=== PATIENT | female | born 1955 | race Caucasian/White ===

== ENCOUNTER 2018-02-20 12:59 | Inpatient (IN) ==
--- NOTE | 2018-02-14 15:26 | Anesthesia Evaluation PreOp ---
Addendum entered and electronically signed by Claudia Huff MD 02/20/18 13:47: PSHx: L-shoulder lumpectomy R-RCR L-RCR Cardiac MOISES stent placement 07/27/2017 Additional PMHx: MARCELLE HTN Chol O2 Sat Height 1.65 m Height 1.65 m Weight 77.111 kg Weight 77.111 kg O2 Sat by Pulse Oximetry 97 Vital Signs Temp Pulse Resp BP Pulse Ox 98.2 F 68 18 139/83 97 02/20/18 13:22 02/20/18 13:22 02/20/18 13:22 02/20/18 13:22 02/20/18 13:22 Laboratory Tests 02/14/18 02/14/18 02/14/18 14:24 14:24 14:24 WBC Hgb Hct Plt Count PT 12.3 H INR 1.1 Sodium 138 Potassium 4.2 Chloride 103 Carbon Dioxide 25 BUN 26 H Creatinine 0.84 Est GFR (Non-Af Amer) > 60 Est Mean Plasma Glucose 128 Hemoglobin A1c 6.1 H 02/14/18 14:25 WBC 17.6 H Hgb 13.5 Hct 41.2 Plt Count 369 PT INR Sodium Potassium Chloride Carbon Dioxide BUN Creatinine Est GFR (Non-Af Amer) Est Mean Plasma Glucose Hemoglobin A1c Cardiac Cath 07/27/2017 [[facility] [place], [place], [place]] 1v CAD Successful PCI, Synergy MOISES to RCA LVEF 40-45% Inferobasal and inferior akinesia NO significant Aortic valve gradient ECHO 01/24/2018 LVEF 35% Akinetic Inferolateral & inferior gilliam Grade 1 diastolic dysfunction Mild Mitral regurgitation Original Note: Date of Encounter: 02/14/18 Time of Encounter: 15:23 - Past History Planned Operation: Right total hip arthroplasty (robotic) Cardiac History: MN (STEMI 07-28-17 (lateral STEMI); 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), CHF (chronic systolic CHF with EF 35%), HTN, Cardiac Stent (distal RCA MOISES stent 07-28-17; effient d/c'ed 02-11-18; cardiology clearance note from), Other (chronic adhesive idiopathic pericarditis) Pulmonary History: Denies Any Significant HX ASSOCIATE MEDICAL DIRECTOR History: Denies Any Significant HX Other Medical History: Diabetes Type II (oral medications only, well controlled) Anesthesia History: No Prior Anesthetic Complications Alcohol Use: none Medications and Allergies Albuterol Inhaler 08/28/17 [History] Amoxicillin/Clavulanate [Augmentin] 875 mg PO BID #20 tablet 08/28/17 [Rx] Aspirin 08/28/17 [History] Atorvastatin 08/28/17 [History] Citalopram 08/28/17 [History] Fluticasone Propionate Nasal [Flonase] 2 spray NS DAILY 7 Days bottle 08/28/17 [Rx] Losartan Potassium 08/28/17 [History] Magnesium 08/28/17 [History] Metformin HCl 08/28/17 [History] Metoprolol 08/28/17 [History] Nitroglycerin 08/28/17 [History] Ondansetron HCl 08/28/17 [History] Prasugrel 08/28/17 [History] Ropinirole HCl 08/28/17 [History] Torsemide 08/28/17 [History] Zolpidem Tartrate 08/28/17 [History] Allergy/AdvReac Type Severity Reaction Status Date / Time Hydromorphone [From Dilaudid] Allergy Gastrointestinal Verified 08/28/17 18:44 Upset promethazine [From Phenergan] Allergy Gastrointestinal Verified 08/28/17 18:44 Upset - Meds/Allergy Pre-op Review Medications Reviewed: Yes Allergies Reviewed: Yes Beta Blockers on Current Med List: Yes (metoprolol) Anesthesia Exam - HEENT Pupil (Motor): Pupils equal, EOMI Mallampati: II Teeth: Normal Oral Opening: Greater than 3 - ASSOCIATE MEDICAL DIRECTOR LOC: Oriented - Cardiac Rhythm: Regular Murmur: None - Pulmonary Breath Sounds: bilateral Clear Respiratory Effort: Symmetrical Anesthesia Assess/Plan ASA Score: 3 Modified Clarissa Scale for Level of Consciousness: Cooperative, oriented, and tranquil Anesthetic Plan: General (Patient prefers general anesthesia over spinal anesthesia; she has a reduced EF of 35% without symptoms of CHF exacerbation; she was recently seen by her transfill technician who cleared her for the surgery scheduled for 02-20-18 and instructed her to d/c her Effient 02-11-18 (of note, she no longer takes a baby aspirin and this is her only blood thinner)) Monitoring Plan: Standard Monitors Recovery Plan: PACU Anes Supervising Prov Stmt: Patient discussed with PAT. We currently have the cardiac clearance note. However, I requested the cardiac records (cardiac cath, echocardiograms, EKG, etc) were requested to be made available the day of surgery.
--- NOTE | 2018-02-19 22:31 | Discharge Summary ---
<Xiomara Benavides - Last Filed: 02/20/18 16:42> Orders not resulted at time of discharge: Pending orders 02/20/18 00:01 XR hip complete RT [XR] Routine H/H [Hemoglobin and Hematocrit] [HEME] Routine - Discharge Diagnosis (1) Status post total hip replacement, right Priority: Primary Status: Acute Comments: Opsite placed. Keep dressing intact until first follow up appointment. If > 50% saturated, notify office, remove dressing and place appropriate dressing back in place. Leave Zipline intact. Opsite dressing is water resistant, not water- proof. OK to shower, but do not get dressing wet. Total Hip replacement Precautions Apply cold therapy 3-6x/day for 20 minutes at a time. Encourage ambulation throughout the day and incentive spirometer 10x/hour. Elevate affected extremity as tolerated. Brace: Wear hip abduction pillow when laying/sleeping (2) Arthritis of right hip Priority: Primary Status: Acute (3) HTN (hypertension) Priority: Secondary Status: Chronic Qualifiers: Hypertension type: essential hypertension Qualified Code(s): I10 - Essential (primary) hypertension (4) DM2 (diabetes mellitus, type 2) Priority: Secondary Status: Acute Qualifiers: Diabetes mellitus oysterman insulin use: unspecified oysterman insulin use status Diabetes mellitus complication status: with unspecified complications Qualified Code(s): E11.8 - Type 2 diabetes mellitus with unspecified complications (5) CAD (coronary artery disease) Priority: Secondary Status: Chronic Qualifiers: Coronary Disease-Associated Artery/Lesion type: unspecified vessel or lesion type [place] vs. transplanted heart: [place] heart Associated angina: without angina Qualified Code(s): I25.10 - Atherosclerotic heart disease of [place] coronary artery without angina pectoris (6) CHF (congestive heart failure) Priority: Secondary Status: Chronic Qualifiers: Heart failure type: combined systolic and diastolic Heart failure chronicity: chronic Qualified Code(s): I50.42 - Chronic combined systolic (congestive) and diastolic (congestive) heart failure (7) MARCELLE (obstructive sleep apnea) Priority: Secondary Status: Chronic - Hospital Course Hospital course: Ms. Rogers is a 62 year old female - Time Spent with Patient Total time spent providing and/or coordinating discharge services: - Discharge Medications Home Medications: Aspirin Enteric Coated [Aspirin EC] 325 mg PO BID #20 tablet 02/19/18 [Rx] OxyCODONE Immed Rel [Roxicodone 5 MG] 5 mg PO Q6HR PRN 7 Days #28 tablet 02/19/18 [Rx] Acetaminophen [Tylenol] 325 mg PO Q4H PRN 02/20/18 [History] Albuterol Neb [Proventil Neb] 2.5 mg IH Q8H PRN 02/20/18 [History] Albuterol Sulfate [Ventolin Hfa] 2 puff IH Q6H PRN 02/20/18 [History] Atorvastatin Calcium [Lipitor] 80 mg PO HS 02/20/18 [History] Ciprofloxacin HCl [Cipro] 250 mg PO BID 02/20/18 [History] Colchicine [Mitigare] 0.6 mg PO DAILY 02/20/18 [History] Guaifenesin [Mucinex] 600 mg PO Q12H 02/20/18 [History] Lisinopril 2.5 mg PO BID 02/20/18 [History] Magnesium Oxide [Mgo] 400 mg PO TID 02/20/18 [History] Meclizine [Antivert] 12.5 mg PO TID PRN 02/20/18 [History] Metoprolol XL (24 HR) Succ [Toprol Xl] 50 mg PO DAILY 02/20/18 [History] Multivitamin [One Daily Multivitamin] 1 tab PO DAILY 02/20/18 [History] Nitroglycerin [Nitrostat] 0.4 mg SL Q5M PRN 02/20/18 [History] Ondansetron HCl [Zofran] 4 mg PO Q8HR PRN 02/20/18 [History] Pantoprazole Sodium [Protonix] 40 mg PO DAILY 02/20/18 [History] Prasugrel [Effient] 10 mg PO DAILY 02/20/18 [History] Sertraline [Zoloft] 25 mg PO DAILY 02/20/18 [History] Tramadol HCl [Ultram] 50 mg PO QID PRN 02/20/18 [History] metFORMIN [Glucophage] 500 mg PO BIDWM 02/20/18 [History] rOPINIRole [Requip] 1 mg PO BID 02/20/18 [History] Ferrous Sulfate 325 mg PO BIDWM tablet 02/22/18 [Rx] Allergies/Adverse Reactions: Allergy/AdvReac Type Severity Reaction Status Date / Time Hydromorphone [From Dilaudid] Allergy Gastrointestinal Verified 08/28/17 18:44 Upset promethazine [From Phenergan] Allergy Gastrointestinal Verified 08/28/17 18:44 Upset Primary care physician: Saji Lockwood MD - Patient Status Disposition: Transfer Inpatient Rehab Fac Condition: Good - Discharge Instructions Instructions: Total Hip Replacement (DC) Follow Up With: Saji Lockwood MD [Primary Care Provider] - Additional Instructions: Discharge Instructions: Total Hip Replacement Please call [facility] ([phone]), your Primary Care Physician, or report to the Emergency Room if you have any of the following symptoms: Nausea, vomiting, fever greater that 101.5, swelling, chest pain, shortness of breath, increased pain/redness/drainage/odor for your incision site, numbness/tingling, or any other concerning symptoms. ACTIVITY:Weight-bearing as tolerated for 8 weeks with hip dislocation precautions that physical therapy taught you. You may progress as tolerated under the guidance of your physical therapist. You do not need to sleep with a pillow between your legs. You can also seep on the operative side or on your stomach. Incentive Spirometer 10 times an hour. MEDICATIONS: Upon discharge resume your home medications. Take all the medications as prescribed. Take a stool softener if taking narcotic pain medications. Stool softeners are only effective if you drink enough fluids. Drink 6-8 glass of water or fluids a day, unless this is not allowed for another health problem. Despite using stool softeners, if you haven't had a bowel movement in 3 days, please switch to a gentle laxative. Gentle laxatives are sold over the counter. You should have a bowel movement within 24 hours, if not call the office. You will be discharged from the hospital with a prescription for pain medication. You are encouraged to decrease the use of narcotic pain medication as tolerated. Should you require a refill, please call the office. [facility] prescribes narcotic pain medication for only 4-6 weeks after surgery. If you require pain medication beyond this time period, you may be referred to your Primary Care Physician or to the Pain Clinic for further evaluation. Plan ahead for refills on pain medication as many narcotics either need to be picked up at the office or mailed. It is best to call 48-72 hours in advance of needing a prescription refill so you don't run out of medication. To help control the post-operative pain, you may take NSAIDs (Aleve,Advil, Motrin, ibuprofen, naprosyn) or Tylenol as prescribed on the bottle in addition to the pain medication. ANTICOAGULATION (blood thinners): Continue your Aspirin, Lovenox or Coumadin as prescribed to help prevent a blood clot in the leg or in the lungs. As long as your incision remains dry and you tolerate the NSAIDs (Aleve, Advil, Motrin, Ibuprofen, Naprosyn), it is OK to use the NSAIDS while you are taking your anticoagulation medication. Should your incision start to drain, stop the NSAID and contact our office. Common symptoms of blood clot in the legs include: localized pain, swelling, calf tenderness, redness or discoloration of the skin. Blood clot in the lung symptoms include: shortness of breath, rapid pulse, sweating, and chest pain that worsens with deep breathing, coughing up blood, lightheadedness, feelings of anxiety. If you experience any of these symptoms notify your physician immediately, go to the emergency room, or if having trouble breathing, call 911. WOUND CARE: Leave the dressing on for 7 to 10days. You may change the dressing if it is saturated greater than 50%. Do not get the dressing wet at anytime. Wash your hands with antibacterial soap, rinse and dry prior to any wound care. If you have francesca the visiting nurse or rehab facility can remove the stapes 10-14 days after surgery and place steri-strips across the wound. Leave the steri-strips in place until they fall off on their own. You may let water from the shower run on top of the steri-strips. If you do not have a visiting nurse or rehab facility, you will need to return to the office at 10-14 days for the francesca to be removed. If you have itching or redness around the dressing call the office. FOLLOW-UP: Please follow up with your surgeon in the orthopedic clinic in 6 weeks from the day of surgery. If you have francesca that need to be removed, you will need to come back to the office in 10-14 days from the day of surgery. <Allyson Martines - Last Filed: 02/22/18 12:29> - NOTES TO OUTPATIENT PROVIDER Notes to Outpatient Provider: Will need repeat H/H on 02/23/18 Orders not resulted at time of discharge: Pending orders 02/20/18 14:04 US anesthesia pain block [US] Routine Date of Encounter: 02/22/18 Time of Encounter: 11:50 - Discharge Diagnosis (1) Status post total hip replacement, right Priority: Primary Status: Acute (2) Arthritis of right hip Priority: Primary Status: Acute (3) Acute blood loss anemia Priority: Secondary Status: Acute (4) DM2 (diabetes mellitus, type 2) Priority: Secondary Status: Acute Qualifiers: Diabetes mellitus oysterman insulin use: unspecified skilled nursing insulin use status Diabetes mellitus complication status: with unspecified complications Qualified Code(s): E11.8 - Type 2 diabetes mellitus with unspecified complications (5) CAD (coronary artery disease) Priority: Secondary Status: Chronic Qualifiers: Coronary Disease-Associated Artery/Lesion type: unspecified vessel or lesion type [place] vs. transplanted heart: [place] heart Associated angina: without angina Qualified Code(s): I25.10 - Atherosclerotic heart disease of [place] coronary artery without angina pectoris (6) CHF (congestive heart failure) Priority: Secondary Status: Chronic Qualifiers: Heart failure type: combined systolic and diastolic Heart failure chronicity: chronic Qualified Code(s): I50.42 - Chronic combined systolic (congestive) and diastolic (congestive) heart failure (7) HTN (hypertension) Priority: Secondary Status: Chronic Qualifiers: Hypertension type: essential hypertension Qualified Code(s): I10 - Essential (primary) hypertension (8) MARCELLE (obstructive sleep apnea) Priority: Secondary Status: Chronic - Hospital Course Hospital course: Ms. Rogers is a 62 year old female s/p right THR robotic 02/20/18 with history of HTN, DMT2, CAD, CHF, MARCELLE. She had uneventful hospital course. Hgb did drop from 9.9 yesterday to 8.6 today but she is asymptomatic at this time and will have ECF redraw H/H tomorrow to monitor. She participated in therapy and is stable for discharge. Patient seen at bedside, without complaints other than some nausea after each therapy session, improved with zofran. A&O x 3 Afebrile, vital signs stable. Dressings to be changed before discharge. No calf tenderness to palpation. Labs reviewed. H/H - 9.9/30.3 on 02/21 8.6/26.9 on 02/22 asymptomatic, will have ECF repeat H/H on 02/23/18 Pain control: adequate Participating in PT. All questions and concerns addressed. Educated on use of incentive spirometer. Encouraged ambulation and proper hydration. Patient educated on post-operative restrictions and post-operative care. Assessment and plan: Continue with postoperative care Discharge plan: VASILIY - Jose, pending authorization, DC today - Time Spent with Patient Total time spent providing and/or coordinating discharge services: Date of admission: 02/20/18 19:29 Primary care physician: Saji Lockwood MD Consults: 02/20/18 19:35 Consult to Nurse Navigator [CONS] Routine Comment: ortho navigator Consult to Occupational Therapy [CONS] Routine Comment: Evaluate, develop and implement POC Reason for Consult: total hip replacement Does patient have active BEDREST order?: No Is patient medically & hemodynamically stable?: Yes Consult to Physical Therapy [CONS] Routine Comment: Evaluate, develop and implement POC Reason for Consult: total hip replacement Does patient have active BEDREST order?: No Is patient medically & hemodynamically stable?: Yes Consult to Wallpaper Inspector And Shipper [CONS] Routine Reason for SW Consult: post op joint replacement RT Post Op Consult [CONS] Routine Discharging clinician: Jorge Pepe Anticipated date of discharge: 02/22/18 Labs on day of discharge: Labs from last 24 hours 02/22/18 02/22/18 02/21/18 04:34 04:34 16:06 Hgb 8.6 L Hct 26.9 L Sodium 136 Potassium 4.1 Chloride 101 Carbon Dioxide 29 BUN 19 Creatinine 0.65 Est GFR ( Amer) > 60 Est GFR (Non-Af Amer) > 60 BUN/Creatinine Ratio 29 H Glucose 128 H POC Glucose 181 H Calculated Osmolality 286 Calcium 9.0 02/21/18 10:37 Hgb Hct Sodium Potassium Chloride Carbon Dioxide BUN Creatinine Est GFR ( Amer) Est GFR (Non-Af Amer) BUN/Creatinine Ratio Glucose POC Glucose 159 H Calculated Osmolality Calcium - Impressions ITS Impressions Hip X-Ray 02/20/18 00:01 IMPRESSION: No acute abnormality following right hip arthroplasty D/ / Nick Acosta MD / Nick Acosta MD Interpreting Provider: Nick Acosta MD - Patient Status Overall status at discharge: patient is back to baseline - Diet and Activity Activity: as per physical therapy Diet: advance to your usual diet
[2018-02-20] MEDS ORDERED: CeFAZolin Syr 2,000MG/20 ML 2,000 MG/20 ML SYRINGE IVPB ONE (13:28)
[2018-02-20] MEDS ORDERED: Lidocaine -MPF 4% 5 ML AMPUL ONE (13:36)
[2018-02-20] MEDS ORDERED: Albuterol 2.5 MG/3 ML NEBULIZER IH ONE (13:47)
[2018-02-20] MEDS: Ringers Solution, Lactated 1,000 ML IVC SCH ×2 (13:57→16:52)
--- NOTE | 2018-02-20 14:02 | History & Physical Report ---
Date of Encounter: 02/20/18 Time of Encounter: 14:01 24 Hour HP Update - Instructions Instructions: If the History and Physical is less than 30 days old and was completed prior to A.M. admission and or procedure and has NOT been updated on calendar day of procedure please complete this update prior to performing procedure. - Update Patient reports changes in Medical Condition: No Changes in examination, assessment, or condition: No Changes in Medication: No Preop tests/diagnostics Reviewed: Yes Surgery Remains Indicated: Yes Consent for Planned Operative Procedure(s) Verified: Yes - Pre-Operative Checklist Preoperative Checklist Indicated: No Prophylactic Antibiotic Ordered: Yes Is VTE Prophylaxis Indicated?: Yes
[2018-02-20] MEDS ORDERED: Famotidine 20 MG/2 ML VIAL IVP ONE (14:04)
[2018-02-20] MEDS ORDERED: Acetaminophen IV 1,000 MG/100 ML INFUS..BTL IVPB ONE (14:05)
[2018-02-20] MEDS ORDERED: Pregabalin 75 MG CAPSULE PO ONE (14:05)
[2018-02-20] MEDS ORDERED: Ethanol\\Acetic Acid\\Na Ace\\Ben 1,000 ML IRRIG.SOLN IR ONE (14:33)
[2018-02-20] MEDS ORDERED: *HR* Propofol 200 MG/20 ML VIAL IVP ONE (14:34)
[2018-02-20] MEDS ORDERED: *HR* FentaNYL (PF) 100 MCG/2 ML VIAL ONE (14:34)
[2018-02-20] MEDS ORDERED: *HR* Midazolam HCl 2 MG/2 ML VIAL ONE (14:34)
[2018-02-20] MEDS ORDERED: Lidocaine -MPF 2% 2 ML VIAL ONE (14:35)
[2018-02-20] MEDS ORDERED: Dexamethasone 4 MG/ML VIAL ONE (14:35)
[2018-02-20] MEDS ORDERED: Ondansetron 4 MG/2 ML VIAL ONE (14:35)
[2018-02-20] MEDS ORDERED: *HR* Etomidate 40 MG/20 ML VIAL IVP ONE (15:00)
--- NOTE | 2018-02-20 15:11 | Anesthesia Procedures ---
Date of Encounter: 02/20/18 Time of Encounter: 14:44 Procedures: Anesthesia - Nerve Block Procedure Date: 02/20/18 Time: 14:49 Surgical Procedure: right total hip replacement Checklist: Correct Patient Identifier, Correct procedure, History checked Correct side: Right Monitor Applied: BP, Pulse Oximetry Supplemental Oxygen via Nasal Cannula (L/min): 2 Sedation: Versed (mg): 2 Sedation: Fentanyl (mcg): 50 Indication: Post Op Analgesia Block Type: Other (facia iliacia) Catheter placed: No Sterile Technique: Yes Ultrasound used: Yes Anatomy identified: Yes Visual spread of Local: Yes Neuro Stimulation: No Blood on Needle Aspiration: No Smooth Injection of Local: Yes Pain with Injection of Local: No Prep: Chlorhexadine Needle: 22 x 50 mm Stimuplex Local: Other (55ml, 5ml of 1% lido, and 50ml 0.25% bup with 20mg tetracaine ) Volume (cc): 55 Number of Attempts: 1 Complications: None/effective block Vitals: vss though out procedure, block per request of surgeon.
[2018-02-20] MEDS ORDERED: *HR* Morphine 2 MG/ML SYRINGE IVP PRN (15:15)
[2018-02-20] MEDS ORDERED: Ondansetron 4 MG/2 ML VIAL IVP ONE (15:15)
[2018-02-20] MEDS ORDERED: *HR* Labetalol 20 MG/4 ML SYRINGE IVP PRN (15:15)
--- NOTE | 2018-02-20 15:56 | Orthopedic Operative Note ---
Date of procedure: 02/20/18 Pre-op diagnosis: Right hip arthritis Post-op diagnosis: same Procedure: Procedure: Right Total Hip Replacment robotic-assisted Estimated blood loss: 200 cc Hardware: Metal and polyethylene replacement. Jennie DM Cup: 52 cup Femoral size 9 stem Head: +4 head with Wen Procedural Notes: Grade 4 arthritic changes femoral head acetabular socket, procedure performed with robotic assistance. Operative leg 13 mm shorter than nonoperative leg is measured by preoperative CT scan. Operative procedure: The patient was brought to the operating room and placed on the operating room table. After general anesthesia was administered the patient was placed in the lateral decubitus position with the operative leg up. All pressure points were padded appropriately and the head was stabilized in the neutral position. The operative extremity was prepped and draped in the sterile surgical fashion patient received IV antibiotic prior to skin incision. 3 Steinmann pins were placed in the iliac crest 3 cm proximal to the anterior superior iliac spine this was for the robotic-assisted sensor. This was done through a small 2 cm incision. A standard posterior approach is made to the operative hip, the inc ision was made through the skin and subcutaneous tissue hemostasis was obtained with Bovie cautery. Using careful sharp dissection the fascia was identified and incised exposing the external rotators. The greater trochanter was marked, and length was measured at this time utilizing robotic assistance. The external rotators were released off the greater trochanter and tagged with #2 FiberWire suture. The capsule was T'd open and the hip was brought into internal rotation. Patient noted to have grade 4 arthritic changes femoral head. The femoral neck cut was made at the appropriate level roughly 15 mm proximal to the lesser trochanter aced on preoperative templating. An anterior capsulotomy was performed for the anterior retractor. Soft tissues removed from the acetabulum. Patient noted to have grade 4 arthritic changes acetabulum. The acetabulum reference point was confirmed. The acetabulum was then mapped with robotic assistance. Based on the preoperative plan the acetabulum was reamed in one step with a 51 reamer. The 52 acetabulum was impacted with robotic assistance and 39 degrees of abduction and 15 degrees of anteversion. The hip was brought back in to internal rotation and prepared with the paper box maker followed by the canal finder followed by the reaming process to a size 9/10 broaching process in 20 degrees anteversion. It was broached up to the appropriate size 9 Trial reduction revealed leg lengths close to normal. The femoral implant was impacted in place in 20 degrees of anteversion. Trial reduction found the hip to be stable with 4 head and Wen. The trials were removed and the real implants were impacted in place. The hip was reduced, patient had robotic confirmed leg length of 5 mm longer than the contralateral side. The hip had excellent stability with forward flexion to 90 degrees adduction of 30 degrees and internal rotation of 60 degrees. The hip had no shuck. The hip sat with an antibacterial solution. It was irrigated out with 2 L of pulse irrigation. The Steinmann pins were removed. The hip was closed by the PA. The deep tissue was irrigated and closed deep with #1 PDS suture superficially with 0 PDS suture and skin was closed with Dermabond and zip tie. The patient was placed in a sterile dressing and abduction pillow. The patient was extubated and transferred to the recovery room in stable condition. Anesthesia: GETA Surgeon: Jorge Pepe Was there an diploma medical assistant present: No Estimated blood loss (cc): 200 Condition: stable Disposition: PACU
[2018-02-20] MEDS ORDERED: *HR* Morphine 10 MG/ML VIAL ONE (16:17)
--- NOTE | 2018-02-20 16:48 | Physician Discharge Referral ---
<Xiomara Benavides L - Last Filed: 02/20/18 16:47> [facility] Referral Info Transfer To: [facility] Provider in Charge: Provider in Charge after Transfer: PCP Institutional Level of Care: Skilled - Diagnosis (1) Status post total hip replacement, right Priority: Primary Status: Acute (2) Arthritis of right hip Priority: Primary Status: Acute (3) HTN (hypertension) Status: Chronic (4) DM2 (diabetes mellitus, type 2) Status: Acute (5) CAD (coronary artery disease) Status: Chronic (6) CHF (congestive heart failure) Status: Chronic (7) MARCELLE (obstructive sleep apnea) Status: Chronic - Transfer Medications Home Medications: Aspirin Enteric Coated [Aspirin EC] 325 mg PO BID #20 tablet.dr 02/19/18 [Rx] OxyCODONE Immed Rel [Roxicodone 5 MG] 5 mg PO Q6HR PRN 7 Days #28 tablet 02/19/18 [Rx] Acetaminophen [Tylenol] 325 mg PO Q4H PRN 02/20/18 [History] Albuterol Neb [Proventil Neb] 2.5 mg IH Q8H PRN 02/20/18 [History] Albuterol Sulfate [Ventolin Hfa] 2 puff IH Q6H PRN 02/20/18 [History] Atorvastatin Calcium [Lipitor] 80 mg PO HS 02/20/18 [History] Ciprofloxacin HCl [Cipro] 250 mg PO BID 02/20/18 [History] Colchicine [Mitigare] 0.6 mg PO DAILY 02/20/18 [History] Guaifenesin [Mucinex] 600 mg PO Q12H 02/20/18 [History] Lisinopril 2.5 mg PO BID 02/20/18 [History] Magnesium Oxide [Mgo] 400 mg PO TID 02/20/18 [History] Meclizine [Antivert] 12.5 mg PO TID PRN 02/20/18 [History] Metoprolol XL (24 HR) Succ [Toprol Xl] 50 mg PO DAILY 02/20/18 [History] Multivitamin [One Daily Multivitamin] 1 tab PO DAILY 02/20/18 [History] Nitroglycerin [Nitrostat] 0.4 mg SL Q5M PRN 02/20/18 [History] Ondansetron HCl [Zofran] 4 mg PO Q8HR PRN 02/20/18 [History] Pantoprazole Sodium [Protonix] 40 mg PO DAILY 02/20/18 [History] Prasugrel [Effient] 10 mg PO DAILY 02/20/18 [History] Sertraline [Zoloft] 25 mg PO DAILY 02/20/18 [History] Tramadol HCl [Ultram] 50 mg PO QID PRN 02/20/18 [History] metFORMIN [Glucophage] 500 mg PO BIDWM 02/20/18 [History] rOPINIRole [Requip] 1 mg PO BID 02/20/18 [History] Ferrous Sulfate 325 mg PO BIDWM tablet 02/22/18 [Rx] Allergies/Adverse Reactions: Allergy/AdvReac Type Severity Reaction Status Date / Time Hydromorphone [From Dilaudid] Allergy Gastrointestinal Verified 08/28/17 18:44 Upset promethazine [From Phenergan] Allergy Gastrointestinal Verified 08/28/17 18:44 Upset - Respiratory Orders None Smoking Cessation: Smoking cessation has been advised. For more information, call the [place] Tobacco Quit Line at 2-494-DXHX-NOW. - Advance Directives Code Status: Full Code - Mobility Orders Chair, Ambulate - Rehabiliation Orders Rehab Potential: Good Rehab Orders: ROM Exercises, Evaluation for Physical Therapy, Evaluation for Occupational Therapy - Treatments List/Other: Total Hip replacement Precautions Apply cold therapy 3-6x/day for 20 minutes at a time. Encourage ambulation throughout the day and incentive spirometer 10x/hour. Elevate affected extremity as tolerated. Brace: Wear hip abduction pillow when laying/sleeping Opsite placed. Keep dressing intact until first follow up appointment. If > 50% saturated, notify office, remove dressing and place appropriate dressing back in place. Leave Zipline intact. Opsite dressing is water resistant, not water- proof. OK to shower, but do not get dressing wet. CERTIFICATION: I certify that the transfer of the above named patient to an Extended Care Facility is necessary for the continuing treatment of the diagnosis listed. The above information is true and accurate reflection of patient's current condition. Confidential - Redisclosure prohibited without a patient's written consent. <Allyson Martines - Last Filed: 02/22/18 12:21> - Diagnosis (1) Status post total hip replacement, right Priority: Primary Status: Acute (2) Arthritis of right hip Priority: Primary Status: Acute (3) Acute blood loss anemia Priority: Secondary Status: Acute (4) DM2 (diabetes mellitus, type 2) Priority: Secondary Status: Acute (5) CAD (coronary artery disease) Priority: Secondary Status: Chronic (6) CHF (congestive heart failure) Priority: Secondary Status: Chronic (7) HTN (hypertension) Priority: Secondary Status: Chronic (8) MARCELLE (obstructive sleep apnea) Priority: Secondary Status: Chronic Expected Duration of Placement: ferry terminal agent Prognosis: Good Aware of Diagnosis: Patient Aware of Prognosis: Patient - Respiratory Orders Smoking Cessation: Smoking cessation has been advised. For more information, call the [employer] Quit Line at 2-414-DOZD-NOW. - Lab Orders Lab Orders: CBC (Need to repeat H/H on 02/23/18) - Ancillary Orders May use pressure relief devices daily prn, May go on MICHAEL w/family/respon constitution party w/meds at nurse discretion PRN, May consult with Dentist, Clerical Manager, Coat Padder PRN - Advance Directives Code Status: Full Code - Mobility Orders Chair, Ambulate - Rehabiliation Orders Rehab Potential: Good Rehab Orders: ROM Exercises, Evaluation for Physical Therapy, Evaluation for Occupational Therapy - Treatments Skin tear care topically daily PRN per policy - Diet Orders Regular CERTIFICATION: I certify that the transfer of the above named patient to an Extended Care Facility is necessary for the continuing treatment of the diagnosis listed. The above information is true and accurate reflection of patient's current condition. Confidential - Redisclosure prohibited without a patient's written consent.
--- NOTE | 2018-02-20 17:14 | Anesthesia Evaluation Post Op ---
Date of Encounter: 02/20/18 Time of Encounter: 17:12 - Vital Signs Vital Signs: Vital Signs/O2 Sat/Glucose, Most Current Temp Pulse Resp BP Pulse Ox 02/20/18 16:55 92 15 135/79 95 02/20/18 16:45 87 14 138/65 96 02/20/18 16:35 98.0 F 92 18 154/81 96 02/20/18 14:56 72 16 131/68 98 02/20/18 14:28 66 18 135/69 99 02/20/18 14:01 18 97 02/20/18 13:22 98.2 F 68 18 139/83 97 - Lungs Lungs: Clear Ascult./Percussion - Airway Airway: Non-obstructed - Cardiovascular Regular Rate, Baseline Rhythm - Mental Status Mental Status: Alert & Oriented, Answers Appropriately - Pain Pain Scale: 0 - Nausea Vomiting Nausea Vomiting: Not Present - Hydration Hydration: Ice chips, Has not voided - Discharge PostOp Status: Transfer Patient to floor (Tolerated anesthesia well.)
[2018-02-20] MEDS ORDERED: *HR* Enoxaparin 30 MG/0.3 ML SYRINGE SQ SCH (18:00)
[2018-02-20] MEDS ORDERED: Dextrose Gel 15 GM/37.5 ML TUBE PO PRN ×2 (19:35)
[2018-02-20] MEDS ORDERED: Fluticasone Propionate Nasal 50 MCG/SPRAY BOTTLE NS PRN (19:35)
[2018-02-20] MEDS ORDERED: Benzonatate 100 MG CAPSULE PO PRN (19:35)
[2018-02-20] MEDS ORDERED: Nitroglycerin 0.4 MG TAB.SUBL SL PRN (19:35)
[2018-02-20] MEDS ORDERED: Temazepam 15 MG CAPSULE PO PRN (19:35)
[2018-02-20] MEDS ORDERED: Sennosides 8.6 MG TABLET PO PRN (19:35)
[2018-02-20] MEDS ORDERED: Colchicine 0.6 MG TABLET PO PRN (19:35)
[2018-02-20] MEDS ORDERED: MOM Conc 10 ML UD.LIQ PO PRN (19:35)
[2018-02-20] MEDS ORDERED: Naloxone 0.4 MG/ML INJ IVP PRN (19:35)
[2018-02-20] MEDS ORDERED: traMADol 50 MG TABLET PO PRN (19:35)
[2018-02-20] MEDS ORDERED: (Menthol [Biofreeze] 1 APPL) TP PRN (19:35)
[2018-02-20] MEDS ORDERED: Ringers Solution, Lactated 1,000 ML IVC SCH (19:35)
[2018-02-20] MEDS ORDERED: *HR* Dextrose 50 % in Water (Syg) 50 ML SYRINGE IVP PRN (19:35)
[2018-02-20] MEDS ORDERED: *HR* OxyCODONE Immed Rel 5 MG TABLET PO PRN (19:35)
[2018-02-20] MEDS ORDERED: D5% in Water 1,000 ML IVC PRN (19:35)
[2018-02-20] MEDS: Insulin LISPRO 300 UNITS/3 ML VIAL SQ SCH ×2 (20:47→20:56)
[2018-02-20] MEDS: Magnesium Oxide 400 MG TABLET PO SCH ×2 (20:51→21:04)
[2018-02-20] MEDS: *HR* Metformin 500 MG TABLET PO SCH (20:51)
[2018-02-20] MEDS: rOPINIRole 1 MG TABLET PO SCH (20:51)
[2018-02-20] MEDS: Ascorbic Acid 500 MG TABLET PO SCH (20:55)
[2018-02-20] MEDS: Ondansetron 4 MG/2 ML VIAL IVP PRN (21:04)
[2018-02-20] MEDS ORDERED: Albuterol 2.5 MG/3 ML NEBULIZER IH PRN (23:00)
[2018-02-21 00:57] LABS: Hematocrit 31.2 % (35.3-44.9)
[2018-02-21 00:58] LABS: Hemoglobin 10.4 g/dL (11.5-15.4)
[2018-02-21] MEDS: Ondansetron 4 MG/2 ML VIAL IVP PRN (03:49)
--- NOTE | 2018-02-21 06:17 | Orthopedics Progress Note ---
Date of Encounter: 02/21/18 Time of Encounter: 06:17 Subjective Interval history: Patient was seen this morning doing well without complaints. Afebrile vital signs stable. Operative extremity: Neurovascularly intact Dressing clean dry and intact Calves nontender Assessment and plan: Continue with postoperative care Objective Vital signs: Vital Signs Temp Pulse Resp BP Pulse Ox 02/21/18 03:41 97.7 F 95 18 117/74 98 02/20/18 22:48 97.5 F L 85 17 123/81 100 02/20/18 20:04 97.9 F 88 15 96/61 100 02/20/18 18:47 76 16 106/71 02/20/18 17:25 98.7 F 72 13 114/63 97 02/20/18 17:15 73 14 122/64 96 02/20/18 17:05 98.7 F 77 15 138/65 94 02/20/18 16:55 92 15 135/79 95 02/20/18 16:45 87 14 138/65 96 02/20/18 16:35 98.0 F 92 18 154/81 96 02/20/18 14:56 72 16 131/68 98 02/20/18 14:28 66 18 135/69 99 02/20/18 14:01 18 97 02/20/18 13:22 98.2 F 68 18 139/83 97 Intake and Output 02/20/18 02/20/18 02/21/18 15:59 23:59 07:59 Intake Total 1100 / 1100 200 / 200 Output Total 200 / 200 Balance 900 / 900 200 / 200 Intake: IV Fluids 1100 / 1100 Lactated Ringers 1,000 ML @ 25 1000 / 1000 mls/hr IVC .Q24H YEN Rx#: [id number] Ofirmev 1,000 mg/100 ml 1,000 100 / 100 mg In 100 ml @ 400 mls/hr IVPB ONCE ONE Rx#:[id number] Oral 200 / 200 Output: Estimated Blood Loss 200 / 200 Other: # Urine Diapers 1 Weight 77.111 kg Blood Glucose* 94 104 - Labs CBC & BMP: 02/21/18 00:23 Labs: Abnormal lab results Hgb 10.4 g/dL (11.5-15.4) L D 02/21/18 00:23 Hct 31.2 % (35.3-44.9) L 02/21/18 00:23 POC Glucose 180 mg/dL (70-99) H 02/20/18 20:50 Consult Discharge Plan - Plan Referrals: Saji Lockwood MD [Primary Care Provider] -
[2018-02-21 06:24] LABS: Hematocrit 30.3 % (35.3-44.9); Hemoglobin 9.9 g/dL (11.5-15.4)
[2018-02-21 06:37] LABS: BUN/Creatinine Ratio 25 (6-26); Blood Urea Nitrogen 19 mg/dL (8-23); Calcium 9.4 mg/dL (8.6-10.3); Carbon Dioxide 24 mEq/L (23-29); Chloride 102 mEq/L (98-107); Glucose 209 mg/dL (70-105); Osmolality,Calculated 286 (280-300); Potassium 4.4 mEq/L (3.5-5.1); Sodium 134 mEq/L (136-145); eGFR For Non-African Americans > 60 (> 60)
[2018-02-21] MEDS: *HR* Enoxaparin 30 MG/0.3 ML SYRINGE SQ SCH ×2 (06:46→16:44)
[2018-02-21] MEDS: Insulin LISPRO 300 UNITS/3 ML VIAL SQ SCH ×4 (08:32→21:54)
[2018-02-21] MEDS: Metoprolol XL (24 HR) Succ 25 MG TAB.ER.24H PO SCH (08:32)
[2018-02-21] MEDS: *HR* Metformin 500 MG TABLET PO SCH ×2 (08:32→21:54)
[2018-02-21] MEDS: Aspirin Enteric Coated 81 MG Tablet PO SCH (08:33)
[2018-02-21] MEDS: rOPINIRole 1 MG TABLET PO SCH ×2 (08:33→21:55)
[2018-02-21] MEDS: Multivit/Ca/Min/Fe/FA 1 TAB TABLET PO SCH (08:33)
[2018-02-21] MEDS: Ascorbic Acid 500 MG TABLET PO SCH ×2 (08:33→16:44)
[2018-02-21] MEDS: Magnesium Oxide 400 MG TABLET PO SCH ×3 (08:33→21:55)
[2018-02-21] MEDS ORDERED: NON-FORMULARY MEDICATION 1 EACH EACH (Multivitamin [One Daily Multivitamin] 1 TAB) PO SCH (09:00)
[2018-02-21] MEDS: *HR* OxyCODONE/APAP 5/325 TABLET PO PRN ×2 (15:21→21:21)
--- NOTE | 2018-02-21 19:23 | Event Note ---
Date of Encounter: 02/21/18 Time of Encounter: 12:15 PCR - POD# 1 s/p right THR robotic 02/20/18 Patient seen at bedside, without complaints. A&O x 3 Afebrile, vital signs stable. Dressings had small amount of bleeding noted but within expectation, will continue to monitor. No calf tenderness to palpation. Labs reviewed. H/H - 9.9/30.3 stable, asymptomatic Pain control: adequate Participating in PT. All questions and concerns addressed. Educated on use of incentive spirometer. Encouraged ambulation and proper hydration. Patient educated on post-operative restrictions and post-operative care. Assessment and plan: Continue with postoperative care Discharge plan: VASILI[facility] Garcia, pending authorization
[2018-02-22] MEDS: *HR* OxyCODONE/APAP 5/325 TABLET PO PRN ×2 (01:31→12:09)
[2018-02-22 04:57] LABS: Hematocrit 26.9 % (35.3-44.9); Hemoglobin 8.6 g/dL (11.5-15.4)
[2018-02-22 05:11] LABS: BUN/Creatinine Ratio 29 (6-26); Blood Urea Nitrogen 19 mg/dL (8-23); Carbon Dioxide 29 mEq/L (23-29); Chloride 101 mEq/L (98-107); Glucose 128 mg/dL (70-105); Osmolality,Calculated 286 (280-300); Potassium 4.1 mEq/L (3.5-5.1); Sodium 136 mEq/L (136-145); eGFR For Non-African Americans > 60 (> 60)
[2018-02-22] MEDS: *HR* Enoxaparin 30 MG/0.3 ML SYRINGE SQ SCH (06:01)
--- NOTE | 2018-02-22 06:39 | Orthopedics Progress Note ---
Date of Encounter: 02/22/18 Time of Encounter: 06:39 - Assessment and Plan (1) Acute blood loss anemia Current Visit: Yes Status: Acute Subjective Interval history: Patient was seen this morning doing well without complaints. Afebrile vital signs stable. Operative extremity: Neurovascularly intact Dressing clean dry and intact Calves nontender Assessment and plan: Continue with postoperative care Hemoglobin 26.9. Objective Vital signs: Vital Signs Temp Pulse Resp BP Pulse Ox 02/22/18 04:30 98.7 F 98 16 103/68 94 02/21/18 23:23 98.3 F 76 16 116/67 93 02/21/18 20:12 98.5 F 77 16 102/62 96 02/21/18 15:35 98.3 F 81 15 95 02/21/18 10:39 97.5 F L 89 16 110/74 100 02/21/18 07:05 97.7 F 75 16 86/55 97 Intake and Output 02/21/18 02/21/18 02/22/18 15:59 23:59 07:59 Intake Total 540 / 540 240 / 240 Output Total 0 / 0 Balance 540 / 540 240 / 240 Intake: Oral 540 / 540 240 / 240 Output: Urine 0 / 0 Other: Meal Breakfast Dinner Percent of Meal Consumed 90% 100% # Voids 1 # Urine Diapers 1 1 Weight 84.1 kg Blood Glucose* 159 151 Patient Weight 02/22/18 23:59 Weight 84.1 kg - Labs CBC & BMP: 02/22/18 04:34 02/22/18 04:34 Labs: Abnormal lab results Hgb 8.6 g/dL (11.5-15.4) L 02/22/18 04:34 Hct 26.9 % (35.3-44.9) L 02/22/18 04:34 BUN/Creatinine Ratio 29 (6-26) H 02/22/18 04:34 Glucose 128 mg/dL (70-105) H 02/22/18 04:34 POC Glucose 181 mg/dL (70-99) H 02/21/18 16:06 Consult Discharge Plan - Plan Referrals: Saji Lockwood MD [Primary Care Provider] -
[2018-02-22] MEDS: Magnesium Oxide 400 MG TABLET PO SCH (08:17)
[2018-02-22] MEDS: rOPINIRole 1 MG TABLET PO SCH (08:17)
[2018-02-22] MEDS: Metoprolol XL (24 HR) Succ 25 MG TAB.ER.24H PO SCH (08:17)
[2018-02-22] MEDS: Multivit/Ca/Min/Fe/FA 1 TAB TABLET PO SCH (08:17)
[2018-02-22] MEDS: *HR* Metformin 500 MG TABLET PO SCH (08:18)
[2018-02-22] MEDS: Ascorbic Acid 500 MG TABLET PO SCH (08:18)
[2018-02-22] MEDS: Insulin LISPRO 300 UNITS/3 ML VIAL SQ SCH ×2 (08:18→11:26)
[2018-02-22] MEDS: Aspirin Enteric Coated 81 MG Tablet PO SCH (08:18)
[2018-02-22 10:43] VITALS: BP 103/58
== END 2018-02-22 14:20 | DRG 301 ==
LOC: SAMDAY 12:59 → 3NENU 19:29
PROVIDERS: ADMIT Orthopaedic Surgery; ATTEND Orthopaedic Surgery

== ENCOUNTER 2021-09-22 02:57 | Inpatient (IN) ==
[2021-09-22] MEDS ORDERED: Acetaminophen 325 MG TABLET PO PRN (03:32)
[2021-09-22] MEDS ORDERED: Naloxone 0.4 MG/ML INJ IVP PRN (03:32)
[2021-09-22] MEDS ORDERED: Ondansetron 4 MG/2 ML VIAL IVP PRN (03:32)
[2021-09-22] MEDS ORDERED: Melatonin 3 MG TABLET PO PRN (03:32)
[2021-09-22] MEDS ORDERED: 0.9 % Sodium Chloride 1,000 ML IVC SCH (03:45)
[2021-09-22] MEDS: Dexamethasone Sodium Phos/PF 10 MG/ML VIAL IVP SCH ×2 (04:59→11:18)
[2021-09-22] MEDS ORDERED: Ampicillin 2,000 MG in 0.9 % Sodium Chloride Mini Bag 100 ML IVPB SCH (05:00)
[2021-09-22] MEDS ORDERED: Dextrose Gel 15 GM/37.5 ML TUBE PO PRN ×2 (05:13)
[2021-09-22] MEDS ORDERED: D5% in Water 1,000 ML IVC PRN (05:13)
[2021-09-22] MEDS ORDERED: *HR* Dextrose 50 % in Water (Syg) 50 ML SYRINGE IVP PRN (05:13)
[2021-09-22 05:23] LABS: Hematocrit 33.7 % (35.3-44.9); Hemoglobin 10.7 g/dL (11.5-15.4); Mean Corpuscular HGB Conc 31.8 g/dL (31.6-35.5); Mean Corpuscular Hemoglobin 28.1 pg (28.0-33.3); Mean Corpuscular Volume 88.5 fL (83.0-100.0); Mean Platelet Volume 9.4 fL (9.4-12.4); Platelet Count 149 K/mcL (140-400); Red Blood Count 3.81 M/mcL (3.82-4.97); White Blood Count 7.9 K/mcL (4.3-11.1)
[2021-09-22 05:44] LABS: BUN/Creatinine Ratio 17 (6-26); Blood Urea Nitrogen 15 mg/dL (8-23); Calcium 8.5 mg/dL (8.6-10.3); Carbon Dioxide 22 mEq/L (23-29); Chloride 108 mEq/L (98-107); Glucose 116 mg/dL (70-105); Osmolality,Calculated 288 (280-300); Potassium 3.5 mEq/L (3.5-5.1); Sodium 138 mEq/L (136-145); eGFR For African Americans > 60 (> 60); eGFR For Non-African Americans > 60 (> 60)
[2021-09-22] MEDS ORDERED: cefTRIAXone 2,000 MG in 0.9 % Sodium Chloride 20 ML IVP SCH (06:00)
[2021-09-22] MEDS ORDERED: Vancomycin 1,500 MG/265 ML IV.SOLN IVPB SCH (06:00)
[2021-09-22] MEDS: Insulin LISPRO 300 UNITS/3 ML VIAL SUBQ SCH ×3 (06:29→18:28)
[2021-09-22] MEDS: *HR* Heparin 5,000 UNIT/ML VIAL SQ SCH ×3 (06:30→20:30)
[2021-09-22] MEDS: rOPINIRole 1 MG TABLET PO SCH (20:29)
[2021-09-22] MEDS: Aspirin Enteric Coated 81 MG Tablet PO SCH (20:29)
[2021-09-22] MEDS: carvediloL 6.25 MG TABLET PO SCH (20:30)
[2021-09-23] MEDS: Insulin LISPRO 300 UNITS/3 ML VIAL SUBQ SCH ×4 (01:10→17:52)
[2021-09-23] MEDS: *HR* Heparin 5,000 UNIT/ML VIAL SQ SCH ×3 (05:33→20:09)
[2021-09-23 06:13] LABS: Basophils % 0.2 %; Hematocrit 33.4 % (35.3-44.9); Hemoglobin 10.8 g/dL (11.5-15.4); Immature Granulocytes % 0.9 % (0-4); Lymphocytes % 15.5 %; Mean Corpuscular HGB Conc 32.3 g/dL (31.6-35.5); Mean Corpuscular Hemoglobin 28.5 pg (28.0-33.3); Mean Corpuscular Volume 88.1 fL (83.0-100.0); Mean Platelet Volume 9.9 fL (9.4-12.4); Monocytes # 0.5 K/mcL (0.0-1.3); Monocytes % 7.4 %; Neutrophils # 5.1 K/mcL (1.6-8.9); Platelet Count 164 K/mcL (140-400); Red Blood Count 3.79 M/mcL (3.82-4.97); Red Cell Distribution Width 13.3 % (11.5-14.5); White Blood Count 6.7 K/mcL (4.3-11.1)
[2021-09-23 06:22] LABS: BUN/Creatinine Ratio 26 (6-26); Blood Urea Nitrogen 19 mg/dL (8-23); Calcium 9.2 mg/dL (8.6-10.3); Carbon Dioxide 20 mEq/L (23-29); Chloride 108 mEq/L (98-107); Glucose 329 mg/dL (70-105); Osmolality,Calculated 297 (280-300); Potassium 3.4 mEq/L (3.5-5.1); Sodium 136 mEq/L (136-145); eGFR For African Americans > 60 (> 60); eGFR For Non-African Americans > 60 (> 60)
[2021-09-23] MEDS: Isosorbide MONOnitrate (24 HR) 30 MG TAB.ER.24H PO SCH (08:36)
[2021-09-23] MEDS: cefTRIAXone 1,000 MG in 0.9 % Sodium Chloride 10 ML IVP SCH (08:36)
[2021-09-23] MEDS: Folic Acid 1 MG TABLET PO SCH (08:36)
[2021-09-23] MEDS: rOPINIRole 1 MG TABLET PO SCH ×3 (08:36→20:08)
[2021-09-23] MEDS: carvediloL 6.25 MG TABLET PO SCH (08:36)
[2021-09-23] MEDS ORDERED: Perflutren Lipid Microsphere 1.3 ML in 0.9 % Sodium Chloride 8.7 ML IVP PRN (14:20)
[2021-09-23] MEDS: Aspirin Enteric Coated 81 MG Tablet PO SCH (20:08)
[2021-09-24] MEDS: Insulin LISPRO 300 UNITS/3 ML VIAL SUBQ SCH ×4 (01:59→17:12)
[2021-09-24 02:23] LABS: Hematocrit 32.7 % (35.3-44.9); Hemoglobin 10.7 g/dL (11.5-15.4); Mean Corpuscular HGB Conc 32.7 g/dL (31.6-35.5); Mean Corpuscular Hemoglobin 28.2 pg (28.0-33.3); Mean Corpuscular Volume 86.1 fL (83.0-100.0); Mean Platelet Volume 10.2 fL (9.4-12.4); Platelet Count 197 K/mcL (140-400); Red Cell Distribution Width 13.3 % (11.5-14.5); White Blood Count 9.9 K/mcL (4.3-11.1)
[2021-09-24 02:36] LABS: BUN/Creatinine Ratio 29 (6-26); Blood Urea Nitrogen 20 mg/dL (8-23); Calcium 9.2 mg/dL (8.6-10.3); Carbon Dioxide 21 mEq/L (23-29); Chloride 105 mEq/L (98-107); Glucose 231 mg/dL (70-105); Osmolality,Calculated 292 (280-300); Potassium 3.3 mEq/L (3.5-5.1); Sodium 136 mEq/L (136-145); eGFR For African Americans > 60 (> 60); eGFR For Non-African Americans > 60 (> 60)
[2021-09-24] MEDS: *HR* Heparin 5,000 UNIT/ML VIAL SQ SCH ×3 (05:32→20:56)
[2021-09-24] MEDS: Isosorbide MONOnitrate (24 HR) 30 MG TAB.ER.24H PO SCH (08:20)
[2021-09-24] MEDS: amLODIPine 5 MG TABLET PO SCH (08:20)
[2021-09-24] MEDS: Folic Acid 1 MG TABLET PO SCH (08:20)
[2021-09-24] MEDS: rOPINIRole 1 MG TABLET PO SCH ×3 (08:20→20:55)
[2021-09-24] MEDS: cefTRIAXone 1,000 MG in 0.9 % Sodium Chloride 10 ML IVP SCH (08:21)
[2021-09-24 09:05] LABS: Magnesium 1.6 mg/dL (1.6-2.6); Phosphorous 3.1 mg/dL (2.7-4.5)
[2021-09-24 09:18] LABS: Thyroid Stimulating Hormone 1.736 mcIU/mL (0.340-5.600)
[2021-09-24 09:30] LABS: Folate > 22.3 ng/mL (3.0-16.0); Vitamin B12 302 pg/mL (250-1100)
[2021-09-24] MEDS: Aspirin Enteric Coated 81 MG Tablet PO SCH (20:55)
[2021-09-24] MEDS ORDERED: Insulin LISPRO 300 UNITS/3 ML VIAL SUBQ SCH (21:00)
[2021-09-24] MEDS ORDERED: GI Cocktail 40 ML EACH PO ONE (22:17)
[2021-09-24] MEDS: Famotidine 20 MG TABLET PO SCH (23:10)
[2021-09-25 01:19] LABS: Hematocrit 31.7 % (35.3-44.9); Hemoglobin 10.3 g/dL (11.5-15.4); Mean Corpuscular HGB Conc 32.5 g/dL (31.6-35.5); Mean Corpuscular Hemoglobin 27.8 pg (28.0-33.3); Mean Corpuscular Volume 85.4 fL (83.0-100.0); Mean Platelet Volume 10.2 fL (9.4-12.4); Platelet Count 204 K/mcL (140-400); Red Blood Count 3.71 M/mcL (3.82-4.97); Red Cell Distribution Width 13.2 % (11.5-14.5); White Blood Count 9.4 K/mcL (4.3-11.1)
[2021-09-25 01:42] LABS: BUN/Creatinine Ratio 24 (6-26); Blood Urea Nitrogen 16 mg/dL (8-23); Calcium 8.6 mg/dL (8.6-10.3); Carbon Dioxide 24 mEq/L (23-29); Chloride 109 mEq/L (98-107); Glucose 169 mg/dL (70-105); Osmolality,Calculated 293 (280-300); Potassium 3.1 mEq/L (3.5-5.1); Sodium 139 mEq/L (136-145); eGFR For African Americans > 60 (> 60); eGFR For Non-African Americans > 60 (> 60)
[2021-09-25] MEDS: *HR* Heparin 5,000 UNIT/ML VIAL SQ SCH ×2 (05:10→15:32)
[2021-09-25] MEDS: Folic Acid 1 MG TABLET PO SCH (08:49)
[2021-09-25] MEDS: rOPINIRole 1 MG TABLET PO SCH ×2 (08:49→15:32)
[2021-09-25] MEDS: Famotidine 20 MG TABLET PO SCH ×2 (08:50→15:32)
[2021-09-25] MEDS: Isosorbide MONOnitrate (24 HR) 30 MG TAB.ER.24H PO SCH (08:50)
[2021-09-25] MEDS: amLODIPine 5 MG TABLET PO SCH (08:50)
[2021-09-25] MEDS: Insulin LISPRO 300 UNITS/3 ML VIAL SUBQ SCH ×2 (08:52→11:43)
[2021-09-25 10:53] VITALS: BP 157/58; PULSE 55; TEMP 97.6; O2SAT 98
[2021-09-25] MEDS: Piperacillin/Tazobactam 3.375 GM in 0.9 % Sodium Chloride Mini Bag 100 ML IVPB SCH ×2 (11:15→15:33)
[2021-09-25 14:39] LABS: Influenza A PCR Negative (Negative); Influenza B PCR Negative (Negative); Resp. Syncytial Virus PCR Negative (Negative)
[2021-09-25 14:43] LABS: SARS-CoV-2 by PCR (In House) Negative (Negative)
== END 2021-09-25 19:40 | DRG 64 ==
LOC: SUATTDRO 02:57 → 2NENU 02:57
PROVIDERS: ADMIT Family Medicine; ATTEND Family Medicine